=== PATIENT | male | born 1985 | race Caucasian/White ===

== ENCOUNTER 2024-07-09 11:46 | Emergency (ER) | payer SELFPAY ==
[2024-07-09 12:07] VITALS: PULSE 86; RESP 18; TEMP 36.7; O2SAT 96; BMI 36.2
--- NOTE | 2024-07-09 13:46 | W.ED.URI ---
HPI - URI/Sore Throat General: Chief Complaint: Upper Respiratory Infection Stated Complaint: vomitting Time Seen by Provider: 07/09/24 11:49 Source: patient Mode of arrival: ambulatory Limitations: no limitations History of Present Illness: Patient is a 38-year-old male here with fevers, chills, body ache, nausea, vomiting, headache, cough, sore throat. His significant other is here also being seen with identical symptoms. He is an everyday smoker. He arrives in no acute distress with stable vital signs. MD elicited complaint: fever, cough, sore throat and nasal congestion Onset (ago): day(s) Consistency: constant Severity: moderate Description of mucous: clear Able to tolerate fluids by mouth: Yes Exacerbating factors: nothing Relieving factors: nothing Context: sick contacts Associated symptoms: Reports chills, fever(s), nasal congestion, nausea and vomiting; Deny abdominal pain, chest pain, diarrhea, ear or mastoid pain, headache(s) or sinus pain Treatments prior to arrival: none Related Data Allergies Allergy/AdvReac Type Severity Reaction Status Date / Time No Known Allergies Allergy Verified 07/09/24 12:11 Review of Systems Const: Reports: fever(s), chills and body aches ENMT: Reports: throat pain, odynophagia, nasal discharge and nasal congestion; Denies: ear or mastoid pain or sinus pain Card: Denies: chest pain Resp: Reports: non-productive cough and chest congestion; Denies: dyspnea, wheezing or hemoptysis GI: Reports: nausea and vomiting; Denies: abdominal pain or diarrhea Musc: Denies: neck pain, back pain, extremity pain, extremity swelling, joint pain or joint swelling Skin/Breast: Denies: rash Neuro: Denies: headache(s), numbness in extremities, weakness in extremities or sensory changes Physical Exam Const: COMMON NORMALS: no acute distress, average body habitus, patient oriented x3, no limitations, alert and well nourished GENERAL APPEARANCE: cooperative NUTRITIONAL APPEARANCE: overweight HENMT: COMMON NORMALS: normocephalic, atraumatic, hearing grossly normal bilaterally, external ears normal, EAC's normal, TM's normal bilaterally, Normal external nose present, Normal nasal mucous membranes and turbinates present, moist oral mucous membranes and oropharynx normal HEAD & SCALP: normocephalic and atraumatic FACE & SINUS: normal facial exam and sinuses nontender NOSE: Normal external nose present and Normal nasal mucous membranes and turbinates present EXTERNAL EAR: Yes external ears normal EXTERNAL AUDITORY CANAL: EAC's normal TYMPANIC MEMBRANE: TM's normal bilaterally THROAT: posterior oropharynx normal, tonsils normal and uvula midline Eye: COMMON NORMALS: Equal, round and reactive pupils present, EOMs intact bilaterally and conjunctivae normal CONJUNCTIVA: Yes conjunctivae normal PUPIL: Yes Equal, round and reactive pupils present Neck/C-Spine: COMMON NORMALS: no lymphadenopathy Resp: COMMON NORMALS: normal respiratory effort AUSCULTATION: wheezes Cardio: COMMON NORMALS: regular rate and regular rhythm RATE: regular rate RHYTHM: regular rhythm Neuro: COMMON NORMALS: patient oriented x3 SENSORIUM/ORIENTATION: Yes alert Course Vital Signs: Vital signs: Vital Signs Temperature 98.1 F 07/09/24 12:07 Pulse Rate 86 07/09/24 12:07 Respiratory Rate 18 07/09/24 12:07 Pulse Oximetry 96 07/09/24 12:07 Oxygen Delivery Me thod Room Air 07/09/24 12:07 MDM - URI/Sore Throat Medical Decision Making Patient is positive for influenza A. Spoke about conservative therapies at home. Return to ED precautions discussed. Differential Diagnosis Likely upper respiratory infection, viral infection, bronchitis and influenza Medical Records I reviewed the patient's medical records. Lab Data I reviewed the patient's lab results. Laboratory Results Coronavirus (PCR) Negative (Negative) 07/09/24 13:55 Influenza A (PCR) Positive (Negative) 07/09/24 13:55 Influenza Type B (PCR) Negative (Negative) 07/09/24 13:55 RSV (PCR) Negative (Negative) 07/09/24 13:55 No radiology studies performed this visit Discharge Plan Discharge Patient Disposition: Home Clinical Impression: Influenza A Condition: Stable Discharge Orders: Discharge ED (Routine); Ordered 07/09/24 Ordered By: Julianna Rod Patient Instructions: Influenza (DC) Coding Level of Care Code ED Html Developer for Evelia Trevino
[2024-07-09 14:46] LABS: Covid PCR NEGATIVE (Negative); Influenza A POSITIVE (Negative); Influenza B NEGATIVE (Negative); Respiratory Syncytial Virus Ce NEGATIVE (Negative)
[2024-07-09 15:14] VITALS: BP 142/71; PULSE 88; O2SAT 96
== END 2024-07-09 15:15 | disposition home or self-care (01) ==
PROVIDERS: Emergency Provider Physician Assistant
DX: J10.1 Influenza due to other identified influenza virus with other respiratory manifestations (principal); Z11.52 Encounter for screening for COVID-19
CPT/HCPCS: 87637; 99283